=== PATIENT | male | born 1975 | race Hispanic/Latino ===

== ENCOUNTER → 2024-10-12 10:08 | Outpatient (REF) | payer OTHER, SELFPAY ==
[2024-10-12 11:45] LABS: Hemoglobin 14.9 g/dL (13.0-18.0); Mean Corp Hgb Conc. 34.7 g/dL (33.0-37.0); Mean Corpuscular Hgb 29.6 pg (27.0-31.0); Mean Corpuscular Volume 85.5 fL (80.0-94.0); Mean Platelet Volume 10.2 fL (7.4-10.4); Platelet Count 206 10^3/uL (130-400); Red Blood Cell Count 5.03 10^6/uL (4.70-6.10); Red Cell Dist. Width 13.4 % (11.5-14.5); White Blood Cell Count 6.2 10^3/uL (4.8-10.8)
[2024-10-12 12:11] LABS: ALT (SGPT) 36 U/L (0-50); AST (SGOT) 31 U/L (17-59); Albumin 4.4 g/dl (3.5-5.0); Alkaline Phosphatase 70 U/L (38-126); Blood Urea Nitrogen 19 mg/dl (9-20); Calcium 9.3 mg/dl (8.4-10.2); Carbon Dioxide 25 mmol/L (22-30); Chloride 108 mmol/L (98-107); Glucose 99 mg/dl (70-99); HDL Cholesterol 38 mg/dl; LDL Cholesterol, Calculated 137 mg/dl; Potassium 4.2 mmol/L (3.5-5.1); Sodium 142 mmol/L (135-145); Total Bilirubin 0.7 mg/dl (0.2-1.3); Total Cholesterol 244 mg/dl (50-199); Total Protein 7.6 g/dl (6.3-8.2); Triglyceride 347 mg/dl (10-149); Very Low Density Lipoprotein 69 mg/dl (0-30); eGFR > 60.00
[2024-10-12 12:36] LABS: TSH Reflex To Free T4 0.77 uIU/ml (0.47-4.68)
== END ==
LOC: CLINIC 10:08
PROVIDERS: ATTENDING PHYSICIAN Nurse Practitioner Adult Health
DX: Z00.00 Encounter for general adult medical examination without abnormal findings (principal)
CPT/HCPCS: 36415; 80053; 80061; 84443; 85027